=== PATIENT | female | born 1975 | race Caucasian/White ===

== ENCOUNTER 2016-08-06 12:29 | Day surgery (SDC) | payer BC ==
[~2016-08-06] VITALS: Ht 157.5 cm; Wt 59.6 kg
[2016-08-06 15:11] VITALS: Ht 157.5 cm; Wt 59.6 kg
[2016-08-06] MEDS ORDERED: CHOL100062 PO (15:20)
[2016-08-06 15:30] VITALS: BP 99/50; PULSE 51; RESP 16
[2016-08-06] MEDS ORDERED: MIDAZOLAM 1 MG/ML 2 ML INJ ONE (16:32)
[2016-08-06] MEDS ORDERED: PROPOFOL 20 ML ONE (16:32)
[2016-08-06] MEDS ORDERED: FENTAnyl 50 MCG/ML VIAL ONE (16:33)
--- NOTE | 2016-08-08 10:40 | GILP ---
DATE OF PROCEDURE: 08/06/2016 PROCEDURE: Esophagogastroduodenoscopy with biopsies. BRIEF HISTORY AND INDICATIONS: The patient is being evaluated for epigastric and abdominal pain. PREMEDICATION: Monitored anesthesia care by anesthesiologist. SURGEON: Dre Rossi MD. INSTRUMENT USED: Olympus panendoscope. TECHNIQUE: After informed consent, with the patient/relatives understanding the procedure, its indic ations, potential risks and complications, including but not limited to: allergic reaction, bleeding , perforation or infection, and after all pertinent questions were answered to the patients satisfac tion, the patient/relatives signed witnessed informed consent. Following this, premedication was administered slowly IV push under careful cardiovascular and respi ratory monitoring with pulse oximetry, automatic blood pressure and monitor tech. Once the sedative effect was achieved the patient was place in the left lateral decubitus, the panen doscope was introduced and advanced under visual control. Careful examination of the upper gastrointestinal tract, both on insertion as well as withdrawal of the instrument disclosed the following findings: ESOPHAGUS: The esophagus shows trachealization of the esophagus suggestive or raising the possibil ity of eosinophilic esophagitis. Biopsies were obtained of the mid-esophagus. There is erythema and edema of the mucosa in the distal esophagus at the EG junction which is graded as moderate. STOMACH: Upon entrance to the stomach, air was insufflated, the gastric no distended normally. The mucosa of the fundus, body and antrum of the stomach was carefully examined, shows erythema and edema of the mucosa of a moderate degree. Biopsies were obtained to rule out H. pylori infection. PYLORUS: The pylorus was patent and within normal limits. DUODENUM: The duodenal bulb shows erythema and edema of the mucosa of a moderate degree. IMPRESSION: 1. Trachealization of the esophagus, rule out eosinophilic esophagitis, biopsies obtained. 2. Moderate distal esophagitis. 3. Moderate gastritis, rule out Helicobacter pylori infection. 4. Duodenitis, rule out H. pylori infection. Gastric biopsies obtained. PLAN: The patient will be treated with PPIs. Pathology will be reviewed as soon as available and gabe preciado recommendations will depend on the patient's clinical course as well as review of biopsies. Dictated By: DRE ROSSI MS/DAV Conf#: [id number] DID#: [id number] CC: DRE ROSSI;*End*
== END 2016-08-06 18:26 | disposition home or self-care (01) ==
LOC: GIL 12:29
PROVIDERS: ATTEND Internal Medicine Gastroenterology
DX: K29.50 Unspecified chronic gastritis without bleeding (principal); K21.0 Gastro-esophageal reflux disease with esophagitis; K29.80 Duodenitis without bleeding
CPT/HCPCS: 43239; 88305; 88312; J2250; J3010; Z7610

== ENCOUNTER 2017-03-03 12:40 | Day surgery (SDC) | payer BC ==
[~2017-03-03] VITALS: Ht 157.5 cm; Wt 59.4 kg
[2017-03-03] VITALS (22 sets, daily range): BP systolic 90–123; BP diastolic 53–78; PULSE 52–70; RESP 10–23; Ht 157.5 cm; Wt 59.4 kg
[~2017-03-03 12:40] MED LIST: CHOL100062 PO
[2017-03-03] MEDS ORDERED: LIDOCAINE 1% (MDV) 20 ML INJ ONE (16:20)
[2017-03-03] MEDS ORDERED: MIDAZOLAM 1 MG/ML 2 ML INJ ONE (16:20)
[2017-03-03] MEDS ORDERED: FENTAnyl 50 MCG/ML VIAL ONE (16:20)
[2017-03-03] MEDS ORDERED: IODIXANOL LOCM 100 ML BTL ONE (16:20)
[2017-03-03] MEDS ORDERED: DIPHENHYDRAMINE 50 MG INJ ONE (16:31)
--- NOTE | 2017-03-03 16:49 | SIPON ---
Date/Time of Note Date/Time of Note DATE: 03/03/17 TIME: 16:47 Operative Report Preoperative Diagnosis chest pain and sob and abnormal stress test Postoperative Diagnosis same Operation/Procedure Performed left heart cath Surgeon see signature line patient support assistant none Anesthesia: moderate sedation Estimated blood loss: none Transfusion Required none Specimen none Grafts/Implants none Complications none MINI PRIETO MD Mar 03, 2017 16:49
--- NOTE | 2017-03-03 16:49 | SIPON ---
Date/Time of Note Date/Time of Note DATE: 03/03/17 TIME: 16:47 Operative Report Preoperative Diagnosis chest pain and sob and abnormal stress test Postoperative Diagnosis same Operation/Procedure Performed left heart cath Surgeon see signature line clinical assistant none Anesthesia: moderate sedation Estimated blood loss: none Transfusion Required none Specimen none Grafts/Implants none Complications none MINI PRIETO MD Mar 03, 2017 16:49
--- NOTE | 2017-03-03 16:49 | SIPON ---
Date/Time of Note Date/Time of Note DATE: 03/03/17 TIME: 16:47 Operative Report Preoperative Diagnosis chest pain and sob and abnormal stress test Postoperative Diagnosis same Operation/Procedure Performed left heart cath Surgeon see signature line assistant in nursing none Anesthesia: moderate sedation Estimated blood loss: none Transfusion Required none Specimen none Grafts/Implants none Complications none MINI PRIETO MD Mar 03, 2017 16:49
--- NOTE | 2017-03-03 22:18 | OPR ---
DATE OF OPERATION: 03/03/2017 INDICATION FOR THE PROCEDURE: Chest pain, shortness of breath, abnormal cardiac stress test. PROCEDURE: 1. Left heart catheterization. 2. Selective right coronary angiography. 3. Selective left coronary angiography. 4. Left ventriculogram. 5. O2 sat monitoring and blood pressure monitoring. 6. Defibrillator pad placement anteriorly and posteriorly. 7. Conscious sedation for 1 hour. 8. Autonomic nervous system interrogation. 9. Right femoral artery angiography. 10. Right femoral artery Angio-Seal deployment was not performed, and manual pressure was held. DESCRIPTION OF PROCEDURE: After informed consent was obtained by the patient, the patient was broug ht to the cardiac catheterization laboratory, where the patient's right groin was prepped and draped in usual sterile fashion. Following this, 1% lidocaine was used in order to infiltrate the right g roin. Following this, the patient then received a 6-[place] sheath into the right femoral artery wit h no complications followed by placing a sheath followed by catheters into the right coronary artery , followed by into the left coronary artery, followed by into the left ventricle. FINDINGS: 1. There was no left main disease. 2. The right coronary artery was patent. 3. The left coronary artery gave branches to the circumflex and LAD. The LAD as well as the circum flex were patent with no significant occlusions; however, the vessels were fairly small. 4. KAUFFMAN view of the left ventricle was visualized and the LV ejection fraction was approximately 60% to 65% with LVEDP of approximately 11 mmHg. Blood pressure was 122/68. IMPRESSION: 1. Successful left heart catheterization. 2. No significant coronary artery disease visualized. Ejection fraction is normal. 3. The patient had less than 0 to 5% stenosis in all the vessels. Dictated By: MINI PRIETO MD, LP/DAV Conf#: [id number] DID#: [id number]
--- NOTE | 2017-03-05 18:28 | RADRPT ---
Vent Rate: 51 bpm RR Interval: 0 msec [place] Interval: 138 msec QRS Duration: 82 msec QT Interval: 442 msec QTC Interval: 407 msec P-R-T [place]: 78 - 76 - 74 degrees Sinus bradycardia Otherwise normal ECG Electronically Signed By: Mani Kang [id number]
--- NOTE | 2017-03-05 18:28 | RADRPT ---
Vent Rate: 51 bpm RR Interval: 0 msec NM Interval: 138 msec QRS Duration: 82 msec QT Interval: 442 msec QTC Interval: 407 msec P-R-T [place]: 78 - 76 - 74 degrees Sinus bradycardia Otherwise normal ECG Electronically Signed By: Mani Kang [id number]
--- NOTE | 2017-03-05 18:28 | RADRPT ---
Vent Rate: 51 bpm RR Interval: 0 msec MA Interval: 138 msec QRS Duration: 82 msec QT Interval: 442 msec QTC Interval: 407 msec P-R-T [place]: 78 - 76 - 74 degrees Sinus bradycardia Otherwise normal ECG Electronically Signed By: Mani Kang [id number]
== END 2017-03-05 09:33 | disposition home or self-care (01) ==
LOC: SDS 12:40 → CCL 12:40
PROVIDERS: ATTEND Internal Medicine
DX: R07.9 Chest pain, unspecified (principal); R06.02 Shortness of breath; R94.39 Abnormal result of other cardiovascular function study
CPT/HCPCS: 81001; 82565; 84520; 85025; 85610; 85730; 93005; 93458; C1887; C1894; J1200; J1644; J2250; J3010; Q9967; Z7610